=== PATIENT | female | born 1965 | race Hispanic/Latino ===

== ENCOUNTER → 2018-03-05 11:00 | Outpatient (CLI) | payer BC, SELFPAY ==
[2018-03-05 16:21] LABS: Hemoglobin A1c 5.7 % (4.2-6.3)
[2018-03-05 16:26] LABS: Free T3 8.2 pg/mL (2.18-3.98); Progesterone Level 0.36 ng/mL (See Comment); T4 Free Direct 1.05 ng/dL (0.76-1.46); Thyroid Stim Hormone (TSH) 0.08 uIU/mL (0.358-3.74)
[2018-03-07 10:53] LABS: DHEA Sulfate 167.2 ug/dL (41.2-243.7)
[2018-03-11 11:23] LABS: HPV Reflexed? NOT INDICATED
== END ==
PROVIDERS: Visit Provider Obstetrics & Gynecology
DX: Z12.4 Encounter for screening for malignant neoplasm of cervix (principal); L65.9 Nonscarring hair loss, unspecified
CPT/HCPCS: 36415; 82533; 82627; 82670; 83036; 84144; 84403; 84439; 84443; 84481; 88175; 82626; G0145